=== PATIENT | female | born 1950 | race Caucasian/White ===

== ENCOUNTER 2023-09-19 19:19 | Inpatient (IN) | payer BC, OTHER ==
[~2023-09-19] VITALS: Ht 165.1 cm; Wt 72.6 kg
[~2023-09-19 19:19] MED LIST: AMIT25TA9 PO; LOSA1TAB15 PO; OMEP20CA15 PO
[2023-09-19 19:25] VITALS: BP_SYST 190; PULSE 89; RESP 20; TEMP 98.6; O2SAT 98
[2023-09-19] MEDS ORDERED: AMIT25TA9 PO (20:11)
[2023-09-19] MEDS ORDERED: VALS160T2 PO (20:11)
[2023-09-19] MEDS ORDERED: CLON0.1T PO (20:11)
[2023-09-19] MEDS: ASPIRIN 81 MG TAB.CHEW PO ONE (20:11)
[2023-09-19] MEDS ORDERED: DILT-118 PO (20:11)
[2023-09-19] MEDS ORDERED: ATOR10TA68 PO (20:11)
[2023-09-19] MEDS ORDERED: METO50TA16 PO (20:11)
[2023-09-19] MEDS ORDERED: OMEP-268 PO (20:11)
[2023-09-19 20:13] LABS: BASOPHILS % (AUTO) 0.7 % (0.0-2.0); EOSINOPHILS # (AUTO) 0.2 K/uL (0.0-0.4); HEMATOCRIT 37.9 % (36-48); HEMOGLOBIN 13.2 g/dL (12.0-16.0); LYMPHOCYTES # (AUTO) 2.4 K/uL (1.0-5.5); LYMPHOCYTES % (AUTO) 36.6 % (20.5-51.5); MEAN CORPUSCULAR HEMOGLOBIN 33 pg (27-31); MEAN CORPUSCULAR HGB CONC 35 % (32-36); MEAN CORPUSCULAR VOLUME 95 fL (79.0-98.0); MONOCYTES # (AUTO) 0.5 K/uL (0.0-1.0); MONOCYTES % (AUTO) 7.6 % (1.7-9.3); NEUTROPHILS # (AUTO) 3.5 K/uL (1.8-7.7); NEUTROPHILS % (AUTO) 52.1 % (40.0-70.0); PLATELET COUNT (AUTO) 279 K/uL (130-430); RED CELL DISTRIBUTION WIDTH 13.1 % (9.0-15.0); WHITE BLOOD COUNT (AUTO) 6.7 K/uL (4.8-10.8)
[2023-09-19 20:35] LABS: ANION GAP 8 (5-15); CARBON DIOXIDE 25 mmol/L (23-29); CHLORIDE 103 mmol/L (98-107); CREATININE 0.85 mg/dL (0.55-1.30); GLUCOSE 123 mg/dL (74-106); LIPASE 97 U/L (16-77); POTASSIUM 3.6 mmol/L (3.5-5.1); SODIUM SERUM 136 mmol/L (136-145); UREA NITROGEN, BLOOD 13 mg/dL (8-21)
[2023-09-19] MEDS: NITROGLYCERIN 1 INCH (GM) OINT. TP ONE (21:29)
[2023-09-19] MEDS ORDERED: METOPROLOL TARTRATE 50 MG TABLET ONE (21:41)
[2023-09-19] MEDS: METOPROLOL SUCCINATE 50 MG TAB.SR.24H (TOPROL XL) PO ONE (21:43)
[2023-09-19] MEDS: METOPROLOL TARTRATE 25 MG TABLET PO ONE (22:17)
[2023-09-19] MEDS ORDERED: cloNIDine HCL 0.1 MG TABLET PO SCH (23:00)
[2023-09-19] MEDS ORDERED: ONDANSETRON HCL 4 MG/2 ML VIAL IVP PRN (23:00)
[2023-09-19] MEDS ORDERED: AMITRIPTYLINE HCL 25 MG TABLET (ELAVIL) PO PRN (23:00)
[2023-09-19] MEDS ORDERED: HYDROcodone/ACETAMIN 5-325 MG TAB (NORCO/ VICODIN) PO PRN (23:00)
[2023-09-19] MEDS ORDERED: LORazepam 2 MG/ML VIAL IVP PRN (23:00)
[2023-09-19] MEDS ORDERED: NALOXONE HCL 0.4 MG/ML AMP (NARCAN) IVP PRN ×2 (23:00)
[2023-09-20] VITALS (9 sets, daily range): BP systolic 107–166; PULSE 72–82; RESP 14–20; TEMP 97.4–99.1; O2SAT 95–97
[2023-09-20] MEDS: ACETAMINOPHEN 325 MG TABLET PO PRN (01:24)
[2023-09-20] MEDS: hydrALAZINE HCL 25 MG TABLET PO PRN (01:46)
[2023-09-20] MEDS: HYDROcodone/ACETAMIN 10-325 MG TAB PO PRN (04:27)
[2023-09-20] MEDS: PANTOPRAZOLE SODIUM 40 MG TAB PO SCH (06:11)
[2023-09-20] MEDS: NORMAL SALINE 5 ML DISP.SYRIN IVF SCH (06:11)
[2023-09-20 06:20] LABS: BASOPHILS % (AUTO) 0.4 % (0.0-2.0); EOSINOPHILS # (AUTO) 0.1 K/uL (0.0-0.4); EOSINOPHILS % (AUTO) 1.4 % (0.0-4.0); HEMOGLOBIN 13.1 g/dL (12.0-16.0); MEAN CORPUSCULAR HEMOGLOBIN 32 pg (27-31); MEAN CORPUSCULAR HGB CONC 34 % (32-36); MEAN CORPUSCULAR VOLUME 95 fL (79.0-98.0); MONOCYTES # (AUTO) 0.6 K/uL (0.0-1.0); MONOCYTES % (AUTO) 6.8 % (1.7-9.3); NEUTROPHILS % (AUTO) 68.4 % (40.0-70.0); PLATELET COUNT (AUTO) 287 K/uL (130-430); RED BLOOD CELL COUNT(AUTO) 4.09 MIL/uL (4.2-6.2); WHITE BLOOD COUNT (AUTO) 8.8 K/uL (4.8-10.8)
[2023-09-20 07:03] LABS: ALANINE AMINOTRANSFERASE 23 U/L (12-78); ALBUMIN 3.6 g/dL (3.4-4.8); ANION GAP 10 (5-15); ASPARTATE AMINOTRANSFERASE 13 U/L (10-37); CALCIUM 8.5 mg/dL (8.4-11.0); CARBON DIOXIDE 24 mmol/L (23-29); CHLORIDE 99 mmol/L (98-107); CREATININE 0.59 mg/dL (0.55-1.30); GLUCOSE 117 mg/dL (74-106); PHOSPHORUS 2.8 mg/dL (2.7-4.5); POTASSIUM 3.2 mmol/L (3.5-5.1); SODIUM SERUM 133 mmol/L (136-145); TOTAL BILIRUBIN 0.4 mg/dL (0.0-1.0); TOTAL PROTEIN, SERUM 6.4 g/dL (6.4-8.3); UREA NITROGEN, BLOOD 11 mg/dL (8-21)
[2023-09-20] MEDS: METOPROLOL TARTRATE 50 MG TABLET PO SCH (09:06)
[2023-09-20] MEDS: DILTIAZEM HCL 180 MG CAP.SR.24H PO SCH (09:07)
[2023-09-20] MEDS: LOSARTAN POTASSIUM 50 MG TABLET (COZAAR) PO SCH (09:07)
[2023-09-20] MEDS ORDERED: ASPIRIN 81 MG TAB.CHEW PO ONE (10:30)
[2023-09-20] MEDS: CARVEDILOL 25 MG TABLET (COREG) PO SCH (20:27)
[2023-09-20] MEDS: ATORVASTATIN 10 MG TABLET PO SCH (20:28)
[2023-09-20] MEDS ORDERED: ATORVASTATIN 10 MG TABLET PO SCH (21:00)
[2023-09-21 08:00] VITALS: O2SAT 95
[2023-09-21 08:13] VITALS: BP_SYST 114; PULSE 72; RESP 14; TEMP 97.9; O2SAT 95
[2023-09-21] MEDS: ASPIRIN 81 MG TAB.CHEW PO SCH (08:32)
[2023-09-21 11:06] LABS: BASOPHILS % (AUTO) 0.6 % (0.0-2.0); EOSINOPHILS # (AUTO) 0.2 K/uL (0.0-0.4); HEMATOCRIT 38.8 % (36-48); LYMPHOCYTES % (AUTO) 28.3 % (20.5-51.5); MEAN CORPUSCULAR HEMOGLOBIN 32 pg (27-31); MEAN CORPUSCULAR HGB CONC 33 % (32-36); MEAN CORPUSCULAR VOLUME 96 fL (79.0-98.0); MONOCYTES # (AUTO) 0.6 K/uL (0.0-1.0); MONOCYTES % (AUTO) 8.8 % (1.7-9.3); NEUTROPHILS # (AUTO) 4.1 K/uL (1.8-7.7); NEUTROPHILS % (AUTO) 59.3 % (40.0-70.0); PLATELET COUNT (AUTO) 294 K/uL (130-430); RED BLOOD CELL COUNT(AUTO) 4.04 MIL/uL (4.2-6.2); RED CELL DISTRIBUTION WIDTH 13.2 % (9.0-15.0)
[2023-09-21 11:10] VITALS: BP_SYST 106; PULSE 73; RESP 15; TEMP 97.9; O2SAT 97
[2023-09-21 11:37] LABS: ALANINE AMINOTRANSFERASE 19 U/L (12-78); ALBUMIN 3.4 g/dL (3.4-4.8); ANION GAP 8 (5-15); ASPARTATE AMINOTRANSFERASE 10 U/L (10-37); CALCIUM 8.7 mg/dL (8.4-11.0); CARBON DIOXIDE 29 mmol/L (23-29); CHLORIDE 101 mmol/L (98-107); CREATININE 0.72 mg/dL (0.55-1.30); GLUCOSE 74 mg/dL (74-106); POTASSIUM 3.5 mmol/L (3.5-5.1); SODIUM SERUM 138 mmol/L (136-145); TOTAL BILIRUBIN 0.5 mg/dL (0.0-1.0); TOTAL PROTEIN, SERUM 6.2 g/dL (6.4-8.3); UREA NITROGEN, BLOOD 17 mg/dL (8-21)
[2023-09-21] MEDS: LIDOCAINE PATCH 5% 1 EA TP ONE (13:01)
[2023-09-21] MEDS ORDERED: COR25 PO (13:26)
[2023-09-21] MEDS ORDERED: ATOR-449 PO (13:26)
[2023-09-21] MEDS ORDERED: LOSA-413 PO (13:26)
[2023-09-21] MEDS ORDERED: LIDOINT TP (13:27)
[2023-09-21 13:50] VITALS: BP_SYST 106; PULSE 73; RESP 16; TEMP 97.9; O2SAT 97
[2023-09-22] MEDS ORDERED: LIDOCAINE PATCH 5% 1 EA TP SCH (09:00)
== END 2023-09-21 14:45 | disposition home or self-care (01) | DRG 206 ==
LOC: SED 19:19 → SMU 22:09 → STU 22:43 → SMU 09-20 16:26
PROVIDERS: ADMIT Specialist; ATTEND Specialist
DX: M94.0 Chondrocostal junction syndrome [Tietze] (principal); I16.0 Hypertensive urgency; I10 Essential (primary) hypertension; E78.5 Hyperlipidemia, unspecified; K58.9 Irritable bowel syndrome, unspecified; K21.9 Gastro-esophageal reflux disease without esophagitis; Z79.899 Other long term (current) drug therapy
CPT/HCPCS: 36415; 71045; 80048; 80053; 83690; 83735; 83880; 84100; 84484; 85025; 85379; 93005; 93306; 99285; G0378